=== PATIENT | male | born 1955 | race Hispanic/Latino ===

== ENCOUNTER 2017-11-27 07:04 | Day surgery (SDC) | payer BC ==
[2017-11-19 07:25] VITALS: BMI 32.7
[2017-11-27] MEDS ORDERED: Propofol 10 mg/ml Inj (20 ML) ONE (08:02)
[2017-11-27] MEDS ORDERED: Midazolam 2 MG/2 ML VIAL ONE (08:02)
[2017-11-27] MEDS ORDERED: Sodium Chloride 0.9% 1,000 ML IV SCH (09:00)
[2017-11-27 09:18] VITALS: O2SAT 96
[2017-11-27 09:38] VITALS: BP 142/82; PULSE 67; RESP 20; TEMP 98.1
== END 2017-11-27 10:21 | disposition home or self-care (01) ==
LOC: ENDO 07:04
PROVIDERS: ATTEND Specialist
DX: D12.3 Benign neoplasm of transverse colon (principal); K62.1 Rectal polyp; K57.30 Diverticulosis of large intestine without perforation or abscess without bleeding; K64.8 Other hemorrhoids; I10 Essential (primary) hypertension; E78.5 Hyperlipidemia, unspecified; G47.33 Obstructive sleep apnea (adult) (pediatric); Z88.1 Allergy status to other antibiotic agents; Z80.0 Family history of malignant neoplasm of digestive organs
CPT/HCPCS: 45381; 45385; 88305; J2250; J2704; J7040